=== PATIENT | male | born 1980 | race Hispanic/Latino ===

== ENCOUNTER 2016-12-01 19:45 | Emergency (ER) | payer BC ==
[2016-12-01 19:56] VITALS: RESP 18
[2016-12-01] MEDS ORDERED: Sodium Chloride 0.9% 1,000 ML IV STA (21:01)
--- NOTE | 2016-12-01 21:27 | ED PDOC ---
HPI: General Adult Time Seen by Provider: 12/01/16 20:06 Chief Complaint (Nursing): Headache History Per: Patient Additional Complaint(s): Pt. state for the past week he's had a gradual onset atraumatic bitemporal headache associated with fever. Reports that pt. was initially seen on Sunday at an urgent care and was diagnosed as having a sinus infection and prescribed a nasal spray which has not provided any relief. Today he was seen again and prescribed naproxen and z-pack and was told to come to ED as he may have meningitis. Reports he is also having neck pain and light sensitivity. Denies head injury, rash, abdominal pain, vomiting, diarrhea, cough, congestion. Past Medical History Reviewed: Historical Data, Nursing Documentation, Vital Signs Vital Signs: Last Vital Signs Temp 101.0 F H 12/01/16 19:51 Pulse 96 H 12/01/16 19:51 Resp 18 12/01/16 19:51 BP 141/79 12/01/16 19:51 Pulse Ox 99 12/01/16 22:31 - Family History Family History: States: No Known Family Hx - Home Medications Home Medications: Ambulatory Orders Medication Instructions Recorded Metoclopramide HCl [Reglan] 10 mg PO Q8 PRN #15 tablet 12/02/16 - Allergies Allergies/Adverse Reactions: Allergies Allergy/AdvReac Type Severity Reaction Status Date / Time No Known Allergies Allergy Verified 12/01/16 19:55 Review of Systems ROS Statement: Except As Marked, All Systems Reviewed And Found Negative Constitutional: Positive for: Fever Neurological: Positive for: Headache Physical Exam - Reviewed Nursing Documentation Reviewed: Yes Vital Signs Reviewed: Yes - Physical Exam Appears: Positive for: Well, Non-toxic, No Acute Distress Head Exam: Positive for: ATRAUMATIC, NORMAL INSPECTION, NORMOCEPHALIC Skin: Positive for: Normal Color, Warm. Negative for: Rash Eye Exam: Positive for: EOMI, Normal appearance, PERRL ENT: Positive for: Normal ENT Inspection Neck: Positive for: Normal, Painless ROM, Supple Cardiovascular/Chest: Positive for: Regular Rate, Rhythm Respiratory: Positive for: CNT, Normal Breath Sounds Gastrointestinal/Abdominal: Positive for: Normal Exam, Bowel Sounds, Soft. Negative for: Tenderness Back: Positive for: Normal Inspection Extremity: Positive for: Normal ROM Neurologic/Psych: Positive for: Alert, Oriented - Laboratory Results Result Diagrams: 12/01/16 21:41 12/01/16 21:41 - ECG O2 Sat by Pulse Oximetry: 99 - Radiology X-Ray: Interpreted by Me (CXR) X-Ray Interpretation: No Acute Disease - Progress ED Course And Treament: Case d/w Dr. Petersen. Labs ordered. CT head w/o contrast. Toradol 15mg IV, zofran 4mg IV ordered. 2230 On re-evaluation, pt. in no distress but reports no relief in headache. Reglan 10mg IVPB ordered. 0033 CT head w/o contrast: negative On 2nd re-evaluation, pt. reports complete relief of headache. Repeat neuro exam is non-focal. Negative Kernig's and Brudzinski. Labs and diagnostics reviewed with patient. Pt. was offered a lumbar puncture but refused. Informed that LP is the only way to r/o meningitis. Pt. states he is feeling much better now and does not want LP. States he will return to ED if symptoms return or worsen. Case d/w Dr. Petersen prior to discharge who agrees with disposition. Disposition - Clinical Impression Clinical Impression: Viral syndrome, Acute headache - Patient ED Disposition Is Patient to be Admitted: No - Disposition Referrals: Dianna Barnett [facility] [Outside] Disposition: Routine/Home Disposition Time: 00:35 Condition: IMPROVED Additional Instructions: RETURN TO ED IMMEDIATELY FOR ANY CONCERNS OR QUESTIONS. TAKE TYLENOL OR NAPROXEN FOR FEVER. DRINK PLENTY OF FLUIDS FOR HYDRATION. Prescriptions: Metoclopramide HCl [Reglan] 10 mg PO Q8 PRN #15 tablet PRN Reason: nausea or headache Instructions: Acute Headache (ED) Forms: 500px (Azeri) Print Language: TUVALUAN
[2016-12-01 21:47] LABS: VENOUS BLOOD GAS BASE EXCESS 1.7 mmol/L (0.0-2.0); VENOUS BLOOD GAS PCO2 42 mmHg (40-60); VENOUS BLOOD PH 7.41 (7.32-7.43)
[2016-12-01 21:51] LABS: BASO % 0.5 % (0.0-2.0); EOS # 0.1 K/uL (0.0-0.7); HEMATOCRIT 36.1 % (35.0-51.0); LYMPH # 1.1 K/uL (1.0-4.3); LYMPH % 23.9 % (20.0-40.0); MEAN CORPUSCULAR HEMOGLOBIN 28.8 pg (27.0-31.0); MEAN CORPUSCULAR HGB CONC 33.9 g/dL (33.0-37.0); MONO # 0.6 K/uL (0.0-0.8); MONO % 12.6 % (0.0-10.0); NEUT # 2.7 K/uL (1.8-7.0); NRBC % 0.2 % (0.0-0.0); RED CELL DISTRIBUTION WIDTH 12.6 % (11.5-14.5); WHITE BLOOD COUNT 4.5 K/uL (4.8-10.8)
[2016-12-01 22:00] LABS: ALB/GLOB RATIO 1.3 (1.0-2.1); ALKALINE PHOSPHATASE 62 U/L (38-126); ALT/SGPT 94 U/L (21-72); AST/SGOT 56 U/L (17-59); BILIRUBIN,TOTAL 0.9 mg/dl (0.2-1.3); BLOOD UREA NITROGEN 14 mg/dl (9-20); CALCIUM 8.8 mg/dL (8.4-10.2); CARBON DIOXIDE 24 mmol/L (22-30); CHLORIDE 106 mmol/L (98-107); GFR AFRICAN-AMERICAN > 60; GLUCOSE,RANDOM 98 mg/dL (75-110); POTASSIUM 4.1 MMOL/L (3.6-5.0); SODIUM 140 mmol/l (132-148); TOTAL PROTEIN 6.7 G/DL (6.3-8.2)
[2016-12-01 22:38] LABS: RBC URINE 1 /hpf (0-3); URINE BILIRUBIN NEGATIVE (NEGATIVE); URINE BLOOD NEGATIVE (NEGATIVE); URINE COLOR STRAW (YELLOW); URINE GLUCOSE (UA) NEG (Normal); URINE KETONE NEGATIVE (NEGATIVE); URINE LEUKOCYTE ESTERASE NEG Leu/uL (Negative); URINE PROTEIN NEGATIVE (NEGATIVE); URINE UROBILINOGEN 0.2-1.0 mg/dL (0.2-1.0); WBC URINE < 1 /hpf (0-5)
[2016-12-02 00:45] VITALS: BP 139/76; PULSE 86; TEMP 98.6; O2SAT 100
--- NOTE | 2016-12-02 09:20 | CT ---
PROCEDURE: CT HEAD WITHOUT CONTRAST. HISTORY: headache COMPARISON: None available. TECHNIQUE: Axial computed tomography images were obtained through the head/brain without intravenous contrast. Radiation dose: Total exam DLP = 864.92 mGy-cm. This CT exam was performed using one or more of the following dose reduction techniques: Automated exposure control, adjustment of the mA and/or kV according to patient size, and/or use of iterative reconstruction technique. FINDINGS: HEMORRHAGE: No acute parenchymal subarachnoid nor extra-axial hemorrhage. BRAIN: No mass effect or edema. No atrophy or chronic microvascular ischemic changes. Round focus low attenuation right inferolateral basal ganglia consistent with dilated perivascular space. VENTRICLES: Unremarkable. No hydrocephalus. CALVARIUM: Unremarkable. PARANASAL SINUSES: Unremarkable as visualized. No significant inflammatory changes. MASTOID AIR CELLS: Unremarkable as visualized. No inflammatory changes. OTHER FINDINGS: None. IMPRESSION: No acute intracranial hemorrhage. Preliminary report provided by overnight radiology service
--- NOTE | 2016-12-02 10:42 | RAD ---
HISTORY: fever COMPARISON: No prior. FINDINGS: LUNGS: No active pulmonary disease. PLEURA: No significant pleural effusion identified, no pneumothorax apparent. CARDIOVASCULAR: Normal. OSSEOUS STRUCTURES: No significant abnormalities. VISUALIZED UPPER ABDOMEN: Normal. OTHER FINDINGS: None. IMPRESSION: No active disease.
== END 2016-12-02 00:46 | disposition home or self-care (01) ==
LOC: H.ER 19:45
DX: B34.9 Viral infection, unspecified (principal)
CPT/HCPCS: 70450; 71010; 80053; 81003; 82803; 85025; 87040; 87070; 87086; 87430; 87804; 96361; 96374; 96375; 99285; J1885; J2765; J7040